=== PATIENT | male | born 1990 | race Caucasian/White ===

== ENCOUNTER 2018-04-28 16:58 | Emergency (ER) | payer MEDICAID ==
[~2018-04-28] VITALS: Ht 160 cm; Wt 63.6 kg
[~2018-04-28 16:58] MED LIST: CYCL-35 PO; DIPH-423 PO; HYDR-569 PO; OMEP-84 PO; ONDA8TAB6 PO; PROM25TA14 PO; ZOF4T PO; [UNRECOGNIZED DRUG - REMARK]
[2018-04-28] MEDS ORDERED: PENI500T2 PO (18:53)
[2018-04-28] MEDS ORDERED: HYDROcodone/acetaminophen 10/325mg tab PO ONE (18:55)
[2018-04-28 19:11] VITALS: BP 145/89
== END 2018-04-28 19:12 | disposition home or self-care (01) ==
LOC: ER 16:59
DX: K04.7 Periapical abscess without sinus (principal); F12.90 Cannabis use, unspecified, uncomplicated; Z79.2 Long term (current) use of antibiotics; Z79.899 Other long term (current) drug therapy
CPT/HCPCS: 99283

== ENCOUNTER 2019-03-23 09:27 | Emergency (ER) | payer OTHER ==
[~2019-03-23] VITALS: Ht 160 cm; Wt 63.6 kg
[~2019-03-23 09:27] MED LIST changes: +CYCL-1 PO; +HYDR-4383 PO; -HYDR-569 PO
[2019-03-23 09:35] VITALS: BP 124/73
[2019-03-23] MEDS ORDERED: ACET-3068 PO (10:37)
[2019-03-23] MEDS ORDERED: CLIN-96 PO (10:37)
== END 2019-03-23 10:51 | disposition home or self-care (01) ==
LOC: ER 09:27
DX: K04.7 Periapical abscess without sinus (principal); K02.9 Dental caries, unspecified; F17.200 Nicotine dependence, unspecified, uncomplicated; F12.90 Cannabis use, unspecified, uncomplicated; Z79.899 Other long term (current) drug therapy
CPT/HCPCS: 99283

== ENCOUNTER 2019-06-14 17:20 | Emergency (ER) | payer OTHER ==
[~2019-06-14] VITALS: Ht 160 cm; Wt 63.6 kg
[~2019-06-14 17:20] MED LIST changes: +CLIN-96 PO
[2019-06-14 17:33] VITALS: BP 112/71
[2019-06-14] MEDS ORDERED: CLIN-96 PO (17:53)
[2019-06-14] MEDS ORDERED: ACET-3068 PO (17:53)
== END 2019-06-14 18:06 | disposition home or self-care (01) ==
LOC: ER 17:21
DX: K04.7 Periapical abscess without sinus (principal); K02.9 Dental caries, unspecified; F17.200 Nicotine dependence, unspecified, uncomplicated; F12.90 Cannabis use, unspecified, uncomplicated; F10.99 Alcohol use, unspecified with unspecified alcohol-induced disorder; Z79.899 Other long term (current) drug therapy; Y90.9 Presence of alcohol in blood, level not specified
CPT/HCPCS: 99283

== ENCOUNTER 2019-08-27 10:03 | Emergency (ER) | payer OTHER ==
[~2019-08-27] VITALS: Ht 160 cm; Wt 63.0 kg
[~2019-08-27 10:03] MED LIST changes: +CLIN-90 PO; -CLIN-96 PO
[2019-08-27 11:04] VITALS: BP 130/76
== END 2019-08-27 11:10 | disposition home or self-care (01) ==
LOC: ER 10:05
DX: S01.111A Laceration without foreign body of right eyelid and periocular area, initial encounter (principal); J45.909 Unspecified asthma, uncomplicated; F12.90 Cannabis use, unspecified, uncomplicated; Z79.899 Other long term (current) drug therapy; Y04.0XXA Assault by unarmed brawl or fight, initial encounter; Y93.89 Activity, other specified; Y92.89 Other specified places as the place of occurrence of the external cause; Y99.9 Unspecified external cause status
CPT/HCPCS: 12011; 99283

== ENCOUNTER 2020-04-25 07:01 | Emergency (ER) | payer OTHER, SELFPAY ==
[~2020-04-25] VITALS: Ht 160 cm; Wt 58.8 kg
[~2020-04-25 07:01] MED LIST changes: -CLIN-90 PO; +CLIN-97 PO
[2020-04-25] MEDS ORDERED: ondansetron/PF 4mg/2ml inj IV ONE (08:05)
[2020-04-25] MEDS ORDERED: normal saline 1000ML IV soln IVB ONE ×2 (08:05→10:55)
[2020-04-25 09:17] LABS: BASOPHILS # (AUTO) 0.1 X10'3 (0-0.2); BASOPHILS % (AUTO) 0.6 % (0-1); EOSINOPHILS # (AUTO) 0.1 X10'3 (0-0.9); EOSINOPHILS % (AUTO) 1.3 % (0-6); HEMATOCRIT 46.8 % (42.0-52.0); LYMPHOCYTES # (AUTO) 2.2 X10'3 (1.1-4.8); LYMPHOCYTES % (AUTO) 22.3 % (21-51); MEAN CORPUSCULAR HEMOGLOBIN 31.5 PG (27.0-31.0); MEAN CORPUSCULAR HGB CONC 34.2 g/dL (33.0-36.5); MEAN CORPUSCULAR VOLUME 91.9 FL (78-98); MEAN PLATELET VOLUME 8.1 FL (7.4-10.4); MONOCYTES # (AUTO) 1.1 X10'3 (0-0.9); MONOCYTES % (AUTO) 11.5 % (2-12); NEUTROPHILS # (AUTO) 6.4 X10'3 (1.8-7.7); NEUTROPHILS % (AUTO) 64.3 % (42-75); PLATELET COUNT 295 X10'3 (140-440); RED BLOOD COUNT 5.09 X10'6 (4.70-6.10); RED CELL DISTRIBUTION WIDTH 13.7 % (11.5-14.5)
[2020-04-25 09:32] LABS: ALANINE AMINOTRANSFERASE 32 U/L (12-78); ALBUMIN 4.4 G/DL (3.4-5.0); ALBUMIN/GLOBULIN RATIO 1.2 (1.1-1.5); ALKALINE PHOSPHATASE 47 IU/L (46-116); ANION GAP 9 (8-16); ASPARTATE AMINO TRANSFERASE 24 U/L (10-37); BILIRUBIN,TOTAL 0.7 MG/DL (0.1-1.0); BLOOD UREA NITROGEN 10 MG/DL (7-18); BUN/CREATININE RATIO 9.5 (5.4-32.0); CALCIUM 9.5 MG/DL (8.5-10.1); CHLORIDE 103 MMOL/L (99-107); CREATININE 1.05 MG/DL (0.60-1.10); ETHANOL < 0.010 GM/DL (0.0-0.010); GLUCOSE 107 MG/DL (70-104); LIPASE 98 U/L (73-393); MAGNESIUM 1.9 MG/DL (1.5-2.4); POTASSIUM 3.6 MMOL/L (3.5-5.1); SODIUM 139 MMOL/L (135-145); TOTAL CARBON DIOXIDE 26.6 MMOL/L (24-32); eGFR 82 ML/MIN
[2020-04-25 09:38] LABS: PARTIAL THROMBOPLASTIN TIME 27 SECONDS (22-32)
--- NOTE | 2020-04-25 09:49 | NUR ---
Dr Delacruz made aware of patient complaint of chest pain, MD to review labs and enter orders accordingly, will continue to monitor.
--- NOTE | 2020-04-25 10:54 | NUR ---
Dr Delacruz made aware patient continues to not be able to urinate after 2L NS IV, MD to enter 1L NS bolus. Will continue to monitor.
[2020-04-25] MEDS ORDERED: ONDA4TAB6 PO (11:08)
[2020-04-25 11:11] LABS: CLARITY,URINE SLIGHTLY CLOUDY (Clear); GLUCOSE, URINE NEGATIVE (Neg); KETONES,URINE NEGATIVE (Neg); LEUKOCYTE ESTERASE ,URINE NEGATIVE (Neg); NITRITES, URINE NEGATIVE (Neg); OCCULT BLOOD,URINE SMALL (Neg); PH,URINE 7.5 (4.8-8.0); PROTEIN,URINE TRACE mg/dl (Neg); UROBILINOGEN,URINE 0.2 E.U/dL (0.2-1.0)
[2020-04-25 11:12] LABS: COLOR,URINE DARK YELLOW (Yellow); UA COLLECTION TYPE CLN CATCH MIDSTREAM
[2020-04-25 11:16] LABS: URINE AMPHETAMINE SCREEN NEGATIVE (Neg); URINE BARBITUATE SCREEN NEGATIVE (Neg); URINE BENZODIAZEPINES SCREEN NEGATIVE (Neg); URINE CANNABINOID SCREEN POSITIVE (Neg); URINE COCAINE SCREEN NEGATIVE (Neg); URINE METHADONE SCREEN NEGATIVE (Neg); URINE OPIATE SCREEN NEGATIVE (Neg); URINE PHENCYCLIDINE SCREEN NEGATIVE (Neg)
[2020-04-25 11:18] LABS: BACTERIA,URINE NONE SEEN /HPF (Neg); MUCUS STRANDS MANY /LPF (Neg); SQUAMOUS EPITHELIAL CELL,UR FEW /LPF (FEW); WBC,URINE 0-4 /HPF (0-4)
[2020-04-25 11:19] LABS: AMORPHOUS PHOSPHATES 3+
[2020-04-25 11:35] VITALS: BP 119/83
== END 2020-04-25 11:37 | disposition home or self-care (01) ==
LOC: ER 07:01
DX: J11.1 Influenza due to unidentified influenza virus with other respiratory manifestations (principal); E86.0 Dehydration; Z20.828 Contact with and (suspected) exposure to other viral communicable diseases; R19.7 Diarrhea, unspecified; R11.10 Vomiting, unspecified; M79.10 Myalgia, unspecified site; R50.9 Fever, unspecified; J45.909 Unspecified asthma, uncomplicated; F12.90 Cannabis use, unspecified, uncomplicated; Z79.2 Long term (current) use of antibiotics; Z79.899 Other long term (current) drug therapy
CPT/HCPCS: 36415; 71045; 80053; 80305; 80320; 81001; 83690; 83735; 85025; 85610; 85730; 96361; 96374; 99285; J2405; J7030; U0003

== ENCOUNTER 2020-06-17 09:14 | Emergency (ER) | payer OTHER, SELFPAY ==
[~2020-06-17] VITALS: Ht 160 cm; Wt 64.0 kg
[~2020-06-17 09:14] MED LIST changes: +ONDA4TAB6 PO
[2020-06-17 09:19] VITALS: BP 109/63
[2020-06-17] MEDS ORDERED: LIDOcaine 5% patch TP STA (09:51)
[2020-06-17] MEDS ORDERED: ketorolac tromethamine 15mg/ml inj. IM ONE (09:55)
[2020-06-17] MEDS ORDERED: LIDO700A32 TOP (10:00)
[2020-06-17] MEDS ORDERED: CYCL-1 PO (10:00)
== END 2020-06-17 10:07 | disposition home or self-care (01) ==
LOC: ER 09:14
DX: M54.6 Pain in thoracic spine (principal); J45.909 Unspecified asthma, uncomplicated; F12.90 Cannabis use, unspecified, uncomplicated; Z79.2 Long term (current) use of antibiotics; Z79.899 Other long term (current) drug therapy
CPT/HCPCS: 71045; 93005; 96372; 99283; J1885

== ENCOUNTER 2020-07-09 11:42 | Emergency (ER) | payer OTHER ==
[~2020-07-09] VITALS: Ht 160 cm; Wt 63.6 kg
[~2020-07-09 11:42] MED LIST changes: +LIDO700A32 TOP
[2020-07-09 11:54] VITALS: BP 101/61
== END 2020-07-09 13:30 | disposition home or self-care (01) ==
LOC: ER 11:43
DX: R05 Cough (principal); R09.81 Nasal congestion; R51.9 Headache, unspecified; Z20.828 Contact with and (suspected) exposure to other viral communicable diseases; J45.909 Unspecified asthma, uncomplicated; F12.90 Cannabis use, unspecified, uncomplicated; Z79.2 Long term (current) use of antibiotics; Z79.899 Other long term (current) drug therapy
CPT/HCPCS: 36415; 87635; 99283

== ENCOUNTER 2021-10-24 19:32 | Emergency (ER) | payer SELFPAY ==
[~2021-10-24] VITALS: Ht 160 cm; Wt 63.6 kg
[2021-10-24 19:45] VITALS: BP 124/71
--- NOTE | 2021-10-24 20:35 | NUR ---
NURSE SPOKE WITH PT BRIEFLY, PT C/O BODY ACHES, STATED HE NEEDED A "MUSCLE RELAXER". NURSE TOLD PT TYLENOL WAS FREQUENTLY GOOD FOR BODY ACHES, PT BECAME UPSET. NURSE EXPLAINED THAT THE PROVIDER WOULD SEE HIM AND MAKE THE DETERMINATION TO WHAT WAS APPROPRIATE, BUT PT STORMED OFF, LEFT.
== END 2021-10-24 20:35 | disposition left against medical advice (07) ==
LOC: ER 19:32
DX: R06.02 Shortness of breath (principal); Z53.21 Procedure and treatment not carried out due to patient leaving prior to being seen by health care provider

== ENCOUNTER 2025-01-04 16:13 | Emergency (ER) | payer SELFPAY ==
[~2025-01-04] VITALS: Ht 160 cm; Wt 61.6 kg
[2025-01-04 16:14] VITALS: BP 115/70; PULSE 72; RESP 16; TEMP 98.2; O2SAT 99
== END 2025-01-04 17:17 | disposition left against medical advice (07) ==
LOC: ER 16:14
DX: H00.011 Hordeolum externum right upper eyelid (principal); L72.0 Epidermal cyst; J45.909 Unspecified asthma, uncomplicated
CPT/HCPCS: 99281

== ENCOUNTER 2025-08-14 16:52 | Emergency (ER) | payer SELFPAY ==
[~2025-08-14] VITALS: Ht 160 cm; Wt 61.8 kg
[~2025-08-14 16:52] MED LIST changes: +CLIN-224 PO; -CLIN-97 PO; +LIDO-52 TOP; -LIDO700A32 TOP
[2025-08-14 17:08] VITALS: BP 99/61; PULSE 66; TEMP 98.1; O2SAT 98
--- NOTE | 2025-08-14 18:02 | Physician Documentation ---
HPI ~ General Chief Complaint: Tooth Problem Stated Complaint: TOOTH PAIN Time Seen by MD: 17:20 Primary Medical Doctor: None History of Present Illness HPI Comment This is a 35-year-old male who presents with one day of left upper rear dental pain, patient reports no fever, no difficulty breathing, no difficulty swallowing. Patient reports no other acute symptoms or concerns. Medication Reconciliation Allergies: Coded Allergies: No Known Allergies (Unverified , 08/14/25) Scheduled Amox Tr/Potassium Clavulanate (Augmentin 875-125 Tablet), 1 TAB PO Q12H Clindamycin HCL* (Clindamycin HCL*), 1 CAP PO Q6H Clindamycin HCL* (Clindamycin HCL*), 1 CAP PO Q6H Cyclobenzaprine HCl (Flexeril), 1 TABLET PO TID Cyclobenzaprine* (Cyclobenzaprine*), 1 TAB PO BID Diphenhydramine Hcl* (Benadryl*), 50 MG PO Q6H Hydrocodone/Acetaminophen ([place] 5-325 Tablet), 1 TABLET PO Q6H Ibuprofen (Ibuprofen), 1 TAB PO Q8H Lidocaine (Lidoderm), 1 PATCH TOP Q12H PRN Omeprazole* (Prilosec*), 40 MG PO DAILY Ondansetron Hcl (Zofran), 1 TAB PO Q6H Ondansetron ODT* (Zofran ODT*), 4 MG PO Q6H, (Reported) Promethazine HCl (Promethazine HCl), 25 MG PO QID Scheduled PRN Cyclobenzaprine* (Cyclobenzaprine*), 1 TABLET PO Q8H PRN for muscle spasms Ondansetron Hcl (Zofran), 8 MG PO Q8HPRN PRN for nausea/vomiting Miscellaneous Medications [Diarrha Med], (Reported) Past Medical History Past Medical History: Syncope, Asthma Past Surgical History: noncontributory Alcohol Use: Occasionally Drug Use: marijuana Lives In: Home Occupation: employed Review of Systems ROS As stated above in the HPI, otherwise all systems are reviewed and negative. Physical Exam Vital Signs: Temperature: 98.1, Source: Temporal, Heart Rate: 66, Respiratory Rate: 16, BP: 99/61, Pulse Oximetry: 98, Weight: 61.800 Oxygen Flow Rate: 0 Physical Exam VITALS: Reviewed and as above. GENERAL: Alert, nontoxic appearing, no apparent distress. HEENT: Poor dentition generally with severely decayed teeth to left upper oral cavity, left upper rear gingiva erythematous and tender palpation without fluctuance, no elevation of the tongue, no submandibular swelling RESPIRATORY: No increased work of breathing, no respiratory distress, speaking in full clear sentences Progress Results/Orders Results/Orders Completed Orders - MULUGETA CAST [employer] Ketorolac Trometh 15mg/Ml Vial (Toradol (08/14/25 17:55) Amox Tr/Potassium Clavulanate (Augmentin (08/14/25 17:55) Medications Received in ER Medications (Trade) Dose Ordered Sig/Darryl Route PRN Reason Start Time Stop Time Status Last Admin Dose Admin (Toradol injection) 15 mg ONCE ONCE IM 08/14/25 17:55 08/14/25 17:56 DC 08/14/25 18:07 15 MG (Augmentin 875-125mg tablet) 1 tab ONCE ONCE PO 08/14/25 17:55 08/14/25 17:56 DC 08/14/25 18:07 1 TAB Vital Signs 08/14/25 08/14/25 17:08 18:07 Temp 98.1 Pulse 66 Resp 16 18 B/P (MAP) 99/61 Pulse Ox 98 O2 Flow Rate 0 Medical Decision Making Additional information obtaine: N/A Findings This well appearing 35-year-old male presented with dental pain to the left upper rear gingiva. Based on history and physical exam I have low clinical suspicion for peritonsillar abscess, uvulitis, deep tissue space infection of the head/neck, or impending airway compromise. There was no submandibular swelling or elevation of the tongue, the uvula was midline, patient is able to swallow fluids and secretion without difficulty, there is no increased work of breathing or noisy breathing. Patient is otherwise well-appearing with remainder of physical exam and appropriate for outpatient follow up. Patient is to follow up with a dentist as soon as possible. Based on presentation I am concerned for odontogenic infection and antibiotic treatment Augmentin is indicated. Pain control with non-narcotic medications is appropriate at this time. Differential Dx:Considerations: Include: Alveolar fracture, Alveolar osteitis, ANUG, Facial Cellulitis, Periapical abscess, Peridontal abscess, Pulpitis, Tooth avulsion, Tooth eruption, Tooth Fracture, Trigeminal neuralgia, Tooth subluxation, Other (Kannan's angina) Departure Disposition: 01 HOME / SELF CARE / HOMELESS Impression: Primary Impression: Toothache Condition: Improved Discharge Instructions: Dental Pain Additional Instructions: Follow up with a dentist as soon as possible. Please take the antibiotics as prescribed. You may use the prescribed ibuprofen as needed for pain starting 10 hours from discharge, take this medication with food to avoid stomach upset. For breakthrough pain you may add up to a 1000 mg of Tylenol 3 times a day. Please also follow up with your primary care provider in the next few days. Please return to the emergency department for any new or worsening concerning symptoms including but not limited to difficulty breathing or swallowing or if you develop a fever over 100.4 that does not lower with ibuprofen or Tylenol. Referrals: NO PRIMARY CARE PROVIDER (PCP) Prescriptions Ibuprofen (Ibuprofen) 800 Mg Tablet 1 TAB PO Q8H for pain for 10 Days, #30 TAB 0 Refills Prov: MULUGETA CAST 08/14/25 Amox Tr/Potassium Clavulanate (Augmentin 875-125 Tablet) 1 Each Tablet 1 TAB PO Q12H for 7 Days, #14 TAB Prov: MULUGETA CAST 08/14/25 Education Educated: Patient Educated regarding: diagnosis, treatment, prognosis, need for follow up Signature Scribe Signature: No scribe Attestation: The note accurately reflects work and decisions made by me.GERALDINE Urbina 08/15/25 00:50 MULUGETA CAST Aug 14, 2025 18:02
[2025-08-14] MEDS ORDERED: AMOX-117 PO (18:04)
[2025-08-14] MEDS ORDERED: IBUP-1986 PO (18:04)
[2025-08-14 18:07] VITALS: RESP 18
[2025-08-14] MEDS: amox tr/potassium clavulanate 875/125mg TAB PO ONE (18:07)
[2025-08-14] MEDS: ketorolac trometh 15mg/ml vial 15 MG/ML ML IM ONE (18:07)
== END 2025-08-14 18:16 | disposition home or self-care (01) ==
LOC: ER 16:52
DX: K08.89 Other specified disorders of teeth and supporting structures (principal); J45.909 Unspecified asthma, uncomplicated; F12.90 Cannabis use, unspecified, uncomplicated; Z79.899 Other long term (current) drug therapy; Z72.89 Other problems related to lifestyle
CPT/HCPCS: 96372; 99283; J1885